=== PATIENT | male | born 1960 | race Caucasian/White ===

== ENCOUNTER 2019-12-01 23:24 | Inpatient (IN) | payer MEDICAID ==
[~2019-12-01] VITALS: Ht 175.3 cm; Wt 68.0 kg
[2019-12-01 23:28] VITALS: BP_SYST 155
[2019-12-02] MEDS ORDERED: NACL 0.9% 2,000 ML IV ONE (00:10)
[2019-12-02] MEDS ORDERED: cefTRIAXone 1 GM IVPB PREMIX 50 ML IV ONE (00:15)
[2019-12-02 01:15] LABS: BASOPHILS % (AUTO) 0.1 % (0.0-2.0); EOSINOPHILS % (AUTO) 0.2 % (0.0-4.0); HEMATOCRIT 40.9 % (36-54); HEMOGLOBIN 14.3 g/dL (14.0-18.0); LYMPHOCYTES # (AUTO) 0.5 K/uL (1.0-5.5); LYMPHOCYTES % (AUTO) 4.6 % (20.5-51.5); MEAN CORPUSCULAR HEMOGLOBIN 30 pg (27-31); MEAN CORPUSCULAR HGB CONC 35 % (32-36); MEAN CORPUSCULAR VOLUME 85 fL (79.0-98.0); MONOCYTES # (AUTO) 1.2 K/uL (0.0-1.0); MONOCYTES % (AUTO) 11.5 % (1.7-9.3); NEUTROPHILS # (AUTO) 8.6 K/uL (1.8-7.7); NEUTROPHILS % (AUTO) 83.6 % (40.0-70.0); PLATELET COUNT (AUTO) 245 K/uL (130-430); RED BLOOD CELL COUNT(AUTO) 4.82 MIL/uL (4.2-6.2); RED CELL DISTRIBUTION WIDTH 13.3 % (9.0-15.0); WHITE BLOOD COUNT (AUTO) 10.3 K/uL (4.8-10.8)
[2019-12-02 01:28] LABS: CALCIUM 8.5 mg/dL (8.4-11.0); CREATININE 1.04 mg/dL (0.55-1.30); POTASSIUM 3.4 mmol/L (3.5-5.1)
[2019-12-02 01:33] LABS: ALBUMIN 2.8 g/dL (3.4-4.8); TOTAL BILIRUBIN 0.9 mg/dL (0.0-1.0)
[2019-12-02] MEDS ORDERED: ACETAMINOPHEN 325 MG TABLET PO PRN (03:30)
[2019-12-02] MEDS ORDERED: NACL 0.9% 1,000 ML IV ONE (03:30)
[2019-12-02] MEDS ORDERED: ONDANSETRON HCL 4 MG/2 ML VIAL IVP PRN (03:30)
[2019-12-02 04:23] LABS: PROTHROMBIN TIME 9.6 SECS (9.5-12.5)
[2019-12-02 04:35] LABS: FREE T4 (FREE THYROXINE) 1.6 ng/dl (0.8-1.5); PHOSPHORUS 2.8 mg/dL (2.7-4.5); THYROID STIMULATING HORMONE 5.19 uIu/mL (0.36-3.74)
[2019-12-02 04:51] LABS: BILIRUBIN,URINE NEGATIVE (NEGATIVE); BLOOD, URINE NEGATIVE (NEGATIVE); CLARITY/URINE CLEAR (CLEAR); COLOR,URINE YELLOW (YELLOW); GLUCOSE,URINE NEGATIVE (NEGATIVE); KETONES,URINE 1+ (NEGATIVE); LEUKOCYTE ESTERASE ,URINE NEGATIVE (NEGATIVE); NITRITE, URINE NEGATIVE (NEGATIVE); PROTEIN URINE 1+ (NEGATIVE)
[2019-12-02 04:57] LABS: BACTERIA,URINE FEW /HPF (None Seen); RBC,URINE 0-3 /HPF (0-3); WBC,URINE 0-3 /HPF (0-3)
[2019-12-02 05:02] LABS: CANNABINOID, URINE POSITIVE (NEG <=50)
[2019-12-02 05:03] LABS: BARBITURATE, URINE NEGATIVE (NEG <=200); BENZODIAZEPINE, URINE NEGATIVE (NEG <=150); COCAINE, URINE NEGATIVE (NEG <=150); METHAMPHETAMINES SCREEN,URINE NEGATIVE (NEG <=500); OPIATE, URINE POSITIVE (NEG <=100); PHENCYCLIDINE SCREEN,URINE NEGATIVE (NEG <=25); UR TRICYCLIC ANTIDEPRESSANTS NEGATIVE (NEG <=300); URINE AMPHETAMINE NEGATIVE (NEG <=500); URINE METHADONE NEGATIVE (NEG <=200); URINE OXYCODONE SCREEN NEGATIVE (NEG <=100); URINE PROPOXYPHENE SCREEN NEGATIVE (NEG <=300)
[2019-12-02 05:11] VITALS: BP_SYST 151
[2019-12-02 08:00] VITALS: BP_SYST 129
[2019-12-02] MEDS: LACTOBACILLUS RHAMNOSUS GG 1 CAP CAPSULE PO SCH (08:52)
[2019-12-02] MEDS: DOCUSATE SODIUM 100 MG CAPSULE PO SCH (08:53)
[2019-12-02] MEDS: HYDROcodone/ACETAMIN 5-325 MG TAB (NORCO/ VICODIN) PO PRN ×2 (11:07→19:37)
[2019-12-02 12:00] VITALS: BP_SYST 147
[2019-12-02 12:56] VITALS: BP_SYST 129
[2019-12-02] MEDS: IPRATROPIUM/ALBUTEROL SULFATE 3 ML AMPUL.NEB (DUONEB) INH SCH ×3 (15:17→23:00)
[2019-12-02 16:00] VITALS: BP_SYST 146
[2019-12-02 19:50] VITALS: BP_SYST 153
[2019-12-02] MEDS: cefTRIAXone 1 GM in D5W 50 ML IV SCH (21:04)
[2019-12-03 00:34] VITALS: BP_SYST 152
[2019-12-03] MEDS ORDERED: MELATONIN 3 MG TABLET PO PRN (01:15)
[2019-12-03] MEDS: LORazepam 1 MG TABLET PO PRN (01:43)
[2019-12-03] MEDS: IPRATROPIUM/ALBUTEROL SULFATE 3 ML AMPUL.NEB (DUONEB) INH SCH ×6 (03:00→23:00)
[2019-12-03 07:16] LABS: BASOPHILS % (AUTO) 0.4 % (0.0-2.0); EOSINOPHILS # (AUTO) 0.1 K/uL (0.0-0.4); EOSINOPHILS % (AUTO) 1.2 % (0.0-4.0); HEMATOCRIT 33.7 % (36-54); HEMOGLOBIN 11.6 g/dL (14.0-18.0); LYMPHOCYTES # (AUTO) 0.9 K/uL (1.0-5.5); LYMPHOCYTES % (AUTO) 8.1 % (20.5-51.5); MEAN CORPUSCULAR HEMOGLOBIN 29 pg (27-31); MEAN CORPUSCULAR HGB CONC 34 % (32-36); MEAN CORPUSCULAR VOLUME 85 fL (79.0-98.0); MONOCYTES # (AUTO) 1.3 K/uL (0.0-1.0); MONOCYTES % (AUTO) 11.6 % (1.7-9.3); NEUTROPHILS # (AUTO) 8.6 K/uL (1.8-7.7); NEUTROPHILS % (AUTO) 78.7 % (40.0-70.0); PLATELET COUNT (AUTO) 280 K/uL (130-430); RED BLOOD CELL COUNT(AUTO) 3.99 MIL/uL (4.2-6.2); WHITE BLOOD COUNT (AUTO) 10.9 K/uL (4.8-10.8)
[2019-12-03 07:45] VITALS: BP_SYST 144
[2019-12-03 08:13] LABS: CALCIUM 8.2 mg/dL (8.4-11.0); CREATININE 1.03 mg/dL (0.55-1.30); PHOSPHORUS 2.9 mg/dL (2.7-4.5); POTASSIUM 3.1 mmol/L (3.5-5.1)
[2019-12-03] MEDS: DOCUSATE SODIUM 100 MG CAPSULE PO SCH (08:54)
[2019-12-03] MEDS: LACTOBACILLUS RHAMNOSUS GG 1 CAP CAPSULE PO SCH (09:04)
[2019-12-03] MEDS: ACETAMINOPHEN/CODEINE 300 MG-30 MG TABLET PO PRN ×2 (09:05→20:00)
[2019-12-03] MEDS ORDERED: MORPHINE 2 MG/ML INJ. SYRINGE IVP PRN ×2 (09:45)
[2019-12-03] MEDS ORDERED: POTASSIUM CHLORIDE 20 MEQ TAB.PRT.SR PO PRN (09:45)
[2019-12-03] MEDS ORDERED: MAGNESIUM SULFATE 50 ML IV PRN (09:45)
[2019-12-03] MEDS ORDERED: DOCUSATE SODIUM 100 MG CAPSULE PO PRN (09:45)
[2019-12-03] MEDS ORDERED: ONDANSETRON HCL 4 MG/2 ML VIAL IVP PRN (09:45)
[2019-12-03] MEDS ORDERED: MUPIROCIN 2% TOPICAL OINTMENT 22 GM NS PRN (09:45)
[2019-12-03] MEDS ORDERED: ACETAMINOPHEN 325 MG TABLET PO PRN (09:45)
[2019-12-03] MEDS ORDERED: ZOLPIDEM TARTRATE 5 MG TABLET PO PRN (09:45)
[2019-12-03 10:08] LABS: AMYLASE 44 U/L (0-100); LIPASE 120 U/L (73-393)
[2019-12-03] MEDS ORDERED: methylPREDNISolone SOD SUCC 40 MG/ML VIAL IVP ONE (11:45)
[2019-12-03 11:47] VITALS: BP_SYST 144
[2019-12-03] MEDS: AZITHROMYCIN 500 MG in NS 250 ML IV SCH (13:04)
[2019-12-03 17:28] VITALS: BP_SYST 153
[2019-12-03 19:45] VITALS: BP_SYST 150
[2019-12-03] MEDS: cefTRIAXone 1 GM in D5W 50 ML IV SCH (20:33)
[2019-12-03] MEDS: methylPREDNISolone SOD SUCC 40 MG/ML VIAL IVP SCH (20:34)
[2019-12-03] MEDS: HEPARIN SODIUM,PORCINE 5000 UNITS/ML VIAL SUBCUT SCH (20:37)
[2019-12-03] MEDS: VORICONAZOLE 200 MG in NS 100 ML IV SCH (23:53)
[2019-12-04] MEDS: LORazepam 2 MG/ML VIAL IVP PRN (01:20)
[2019-12-04 02:43] VITALS: BP_SYST 152
[2019-12-04] MEDS: IPRATROPIUM/ALBUTEROL SULFATE 3 ML AMPUL.NEB (DUONEB) INH SCH ×6 (03:00→23:00)
[2019-12-04 05:55] LABS: BASOPHILS % (AUTO) 0.1 % (0.0-2.0); HEMATOCRIT 32.1 % (36-54); HEMOGLOBIN 10.9 g/dL (14.0-18.0); LYMPHOCYTES # (AUTO) 0.6 K/uL (1.0-5.5); LYMPHOCYTES % (AUTO) 6.6 % (20.5-51.5); MEAN CORPUSCULAR HEMOGLOBIN 29 pg (27-31); MEAN CORPUSCULAR HGB CONC 34 % (32-36); MEAN CORPUSCULAR VOLUME 85 fL (79.0-98.0); MONOCYTES # (AUTO) 0.5 K/uL (0.0-1.0); MONOCYTES % (AUTO) 5.1 % (1.7-9.3); NEUTROPHILS # (AUTO) 7.9 K/uL (1.8-7.7); NEUTROPHILS % (AUTO) 88.2 % (40.0-70.0); PLATELET COUNT (AUTO) 356 K/uL (130-430); RED BLOOD CELL COUNT(AUTO) 3.77 MIL/uL (4.2-6.2); RED CELL DISTRIBUTION WIDTH 13.3 % (9.0-15.0)
[2019-12-04 08:00] VITALS: BP_SYST 153
[2019-12-04] MEDS: LACTOBACILLUS RHAMNOSUS GG 1 CAP CAPSULE PO SCH (09:00)
[2019-12-04] MEDS: methylPREDNISolone SOD SUCC 40 MG/ML VIAL IVP SCH ×2 (09:00→23:02)
[2019-12-04] MEDS: HEPARIN SODIUM,PORCINE 5000 UNITS/ML VIAL SUBCUT SCH ×2 (09:00→23:04)
[2019-12-04] MEDS: VORICONAZOLE 200 MG in NS 100 ML IV SCH ×2 (09:00→23:01)
[2019-12-04] MEDS: DOCUSATE SODIUM 100 MG CAPSULE PO SCH (09:00)
[2019-12-04 11:17] LABS: CALCIUM 8.5 mg/dL (8.4-11.0); CREATININE 0.84 mg/dL (0.55-1.30); POTASSIUM 4.8 mmol/L (3.5-5.1)
[2019-12-04] MEDS ORDERED: METOPROLOL TARTRATE 25 MG TABLET PO ONE (11:45)
[2019-12-04 12:00] VITALS: BP_SYST 118; BP_SYST 150
[2019-12-04] MEDS: AZITHROMYCIN 500 MG in NS 250 ML IV SCH (12:55)
[2019-12-04] MEDS ORDERED: METOPROLOL TARTRATE 25 MG TABLET ONE (13:26)
[2019-12-04 20:00] VITALS: BP_SYST 146
[2019-12-04 21:20] LABS: HEMOGLOBIN A1C 5.8 % (4.8-5.6)
[2019-12-04] MEDS: cefTRIAXone 1 GM in D5W 50 ML IV SCH (23:02)
[2019-12-04] MEDS: METOPROLOL TARTRATE 25 MG TABLET PO SCH (23:07)
[2019-12-04] MEDS: LORazepam 1 MG TABLET PO PRN (23:08)
[2019-12-04] MEDS: ACETAMINOPHEN/CODEINE 300 MG-30 MG TABLET PO PRN (23:09)
[2019-12-05 00:18] VITALS: BP_SYST 146
[2019-12-05] MEDS: IPRATROPIUM/ALBUTEROL SULFATE 3 ML AMPUL.NEB (DUONEB) INH SCH ×6 (02:41→23:00)
[2019-12-05 06:57] LABS: BASOPHILS % (AUTO) 0.1 % (0.0-2.0); HEMATOCRIT 34.5 % (36-54); HEMOGLOBIN 11.5 g/dL (14.0-18.0); LYMPHOCYTES # (AUTO) 0.7 K/uL (1.0-5.5); LYMPHOCYTES % (AUTO) 3.5 % (20.5-51.5); MEAN CORPUSCULAR HEMOGLOBIN 29 pg (27-31); MEAN CORPUSCULAR HGB CONC 33 % (32-36); MEAN CORPUSCULAR VOLUME 86 fL (79.0-98.0); MONOCYTES # (AUTO) 0.8 K/uL (0.0-1.0); MONOCYTES % (AUTO) 4.2 % (1.7-9.3); NEUTROPHILS # (AUTO) 17.4 K/uL (1.8-7.7); NEUTROPHILS % (AUTO) 92.2 % (40.0-70.0); PLATELET COUNT (AUTO) 510 K/uL (130-430); RED BLOOD CELL COUNT(AUTO) 3.99 MIL/uL (4.2-6.2); RED CELL DISTRIBUTION WIDTH 13.4 % (9.0-15.0); WHITE BLOOD COUNT (AUTO) 18.8 K/uL (4.8-10.8)
[2019-12-05 07:23] LABS: CALCIUM 8.8 mg/dL (8.4-11.0); CREATININE 0.98 mg/dL (0.55-1.30); POTASSIUM 4.1 mmol/L (3.5-5.1)
[2019-12-05 07:31] VITALS: BP_SYST 146
[2019-12-05 08:00] VITALS: BP_SYST 146
[2019-12-05] MEDS: VORICONAZOLE 200 MG in NS 100 ML IV SCH ×2 (08:56→22:16)
[2019-12-05] MEDS: methylPREDNISolone SOD SUCC 40 MG/ML VIAL IVP SCH ×2 (08:56→20:29)
[2019-12-05] MEDS: LACTOBACILLUS RHAMNOSUS GG 1 CAP CAPSULE PO SCH (08:57)
[2019-12-05] MEDS: DOCUSATE SODIUM 100 MG CAPSULE PO SCH (08:57)
[2019-12-05] MEDS: ACETAMINOPHEN/CODEINE 300 MG-30 MG TABLET PO PRN ×2 (08:57→18:46)
[2019-12-05] MEDS: METOPROLOL TARTRATE 25 MG TABLET PO SCH ×2 (08:58→20:29)
[2019-12-05] MEDS: HEPARIN SODIUM,PORCINE 5000 UNITS/ML VIAL SUBCUT SCH ×2 (09:08→20:28)
[2019-12-05 12:00] VITALS: BP_SYST 152
[2019-12-05] MEDS: AZITHROMYCIN 500 MG in NS 250 ML IV SCH (13:16)
[2019-12-05 16:48] VITALS: BP_SYST 145
[2019-12-05] MEDS: cefTRIAXone 1 GM in D5W 50 ML IV SCH (20:28)
[2019-12-05] MEDS: guaiFENesin 200 MG/CODEINE 20 MG/ 10 ML UDC PO PRN (22:16)
[2019-12-05] MEDS: LORazepam 1 MG TABLET PO PRN (22:16)
[2019-12-06 01:34] VITALS: BP_SYST 153
[2019-12-06] MEDS: IPRATROPIUM/ALBUTEROL SULFATE 3 ML AMPUL.NEB (DUONEB) INH SCH ×4 (02:42→15:25)
[2019-12-06] MEDS: guaiFENesin 200 MG/CODEINE 20 MG/ 10 ML UDC PO PRN ×2 (06:22→18:02)
[2019-12-06 07:06] LABS: BASOPHILS % (AUTO) 0.1 % (0.0-2.0); HEMATOCRIT 30.9 % (36-54); HEMOGLOBIN 10.4 g/dL (14.0-18.0); LYMPHOCYTES # (AUTO) 0.5 K/uL (1.0-5.5); LYMPHOCYTES % (AUTO) 4.1 % (20.5-51.5); MEAN CORPUSCULAR HEMOGLOBIN 29 pg (27-31); MEAN CORPUSCULAR HGB CONC 34 % (32-36); MEAN CORPUSCULAR VOLUME 86 fL (79.0-98.0); MONOCYTES # (AUTO) 0.8 K/uL (0.0-1.0); MONOCYTES % (AUTO) 5.9 % (1.7-9.3); NEUTROPHILS # (AUTO) 11.5 K/uL (1.8-7.7); NEUTROPHILS % (AUTO) 89.9 % (40.0-70.0); PLATELET COUNT (AUTO) 490 K/uL (130-430); RED BLOOD CELL COUNT(AUTO) 3.58 MIL/uL (4.2-6.2); RED CELL DISTRIBUTION WIDTH 13.4 % (9.0-15.0); WHITE BLOOD COUNT (AUTO) 12.7 K/uL (4.8-10.8)
[2019-12-06 07:13] LABS: CALCIUM 8.4 mg/dL (8.4-11.0); CREATININE 0.97 mg/dL (0.55-1.30)
[2019-12-06 07:18] LABS: POTASSIUM 4.3 mmol/L (3.5-5.1)
[2019-12-06 08:13] VITALS: BP_SYST 160
[2019-12-06] MEDS: LACTOBACILLUS RHAMNOSUS GG 1 CAP CAPSULE PO SCH (08:30)
[2019-12-06] MEDS: METOPROLOL TARTRATE 25 MG TABLET PO SCH (08:31)
[2019-12-06] MEDS: methylPREDNISolone SOD SUCC 40 MG/ML VIAL IVP SCH (08:31)
[2019-12-06] MEDS: VORICONAZOLE 200 MG in NS 100 ML IV SCH (08:33)
[2019-12-06] MEDS: DOCUSATE SODIUM 100 MG CAPSULE PO SCH (08:33)
[2019-12-06] MEDS: HEPARIN SODIUM,PORCINE 5000 UNITS/ML VIAL SUBCUT SCH (08:36)
[2019-12-06 12:00] VITALS: BP_SYST 146
[2019-12-06] MEDS: AZITHROMYCIN 500 MG in NS 250 ML IV SCH (12:46)
[2019-12-06] MEDS ORDERED: AZIT500T3 PO (12:56)
[2019-12-06] MEDS ORDERED: VFE200 PO (12:56)
[2019-12-06] MEDS ORDERED: METO25TA6 PO (13:06)
[2019-12-06 13:46] VITALS: BP_SYST 146
[2019-12-06 16:00] VITALS: BP_SYST 138
[2019-12-06] MEDS: LORazepam 2 MG/ML VIAL IVP PRN (18:22)
[2019-12-07 18:07] LABS: ASPERGILLUS FLAVUS Negative (Neg:<1:1); ASPERGILLUS FUMIGATUS Negative (Neg:<1:1)
[2019-12-11 18:49] LABS: COCCIDIOIDES AB COMPLEMENT FIX None Detected (NEGATIVE)
== END 2019-12-06 20:25 | disposition home or self-care (01) | DRG 249 ==
LOC: SED 23:24 → SMU 12-02 03:28
PROVIDERS: ADMIT Family Medicine; ATTEND Family Medicine
DX: A08.4 Viral intestinal infection, unspecified (principal); J16.8 Pneumonia due to other specified infectious organisms; B49 Unspecified mycosis; E44.0 Moderate protein-calorie malnutrition; E87.1 Hypo-osmolality and hyponatremia; J98.01 Acute bronchospasm; E87.6 Hypokalemia; Z77.120 Contact with and (suspected) exposure to mold (toxic); Z68.22 Body mass index [BMI] 22.0-22.9, adult; Z79.899 Other long term (current) drug therapy
CPT/HCPCS: 36415; 36600; 71045; 76700-TC; 80048; 80053; 80061; 80307; 81000-TC; 82150-TC; 82803-TC; 83036; 83605; 83655; 83690-TC; 83735-TC; 83880; 84100-TC; 84439; 84443-TC; 85025; 85610-TC; 86606; 86635; 86710; 87040-TC; 87070-TC; 87186-TC; 87205-TC; 93005; 94640; 94760; 96365; 96367; 99285; J0456; J0696; J1030; J1644; J1956; J2060; J3465; J7030; J7050; J7060; J7620